=== PATIENT | female | born 1995 ===

== ENCOUNTER 2017-07-13 03:32 | Emergency (ER) | payer SELFPAY ==
--- NOTE | 2017-07-13 04:10 | ED ---
Santosh Valerio Rebecca, scribed for David Shields MD on 07/13/17 at 0354 . Substance Abuse/Use - HPI Summary HPI Summary: Pt is a 22 y/o F BIBA who comes to ED p/w EtOH intoxication with associated N/ V. Per EMS, she was found by a friend an hour after they had last seen her and her friend called EMS. When asked multiple questions she states unrelated phrases such as "I want the doctor," "I'm going to cry" and "I just want to go home." Level 5 caveat due to EtOH intoxication. - History Of Current Complaint Chief Complaint: EDSubstanceAbuse Stated Complaint: ALCHOHOL CONSUMPTION Hx Obtained From: EMS Hx From Patient Unobtainable Due To: Other - EtOH intoxication Ingestion History: Type/Name Of Drug - EtOH Overdose Characteristics: Oral Associated Signs And Symptoms: Nausea, Vomiting - Allergies/Home Medications Allergies/Adverse Reactions: Allergies Allergy/AdvReac Type Severity Reaction Status Date / Time Unable to Obtain Allergy Verified 07/13/17 03:39 PMH/Surg Hx/FS Hx/Imm Hx Previously Healthy: No - Unknown, level 5 caveat due to EtOH intoxication Infectious Disease History: Unable to Obtain/Confirm Infectious Disease History: Denies: Traveled Outside the [place] in Last 30 Days - Family History Known Family History: Positive: Unknown - Level 5 caveat due to EtOH intoxication - Social History Occupation: Student Alcohol Use: Presents with EtOH intoxication Review of Systems - ROS Summary Review of Systems Summary: Level 5 caveat due to EtOH intoxication. Positive: Vomiting, Nausea Positive: Other - EtOH intoxication All Other Systems Reviewed And Are Negative: No Physical Exam Triage Information Reviewed: Yes Vital Signs On Initial Exam: Initial Vitals Temp Pulse Resp BP Pulse Ox 95.5 F 95 16 90/71 100 07/13/17 03:35 07/13/17 03:35 07/13/17 03:35 07/13/17 03:35 07/13/17 03:35 Vital Signs Reviewed: Yes Appearance: Positive: Well-Appearing - aob Skin: Positive: Warm Head/Face: Positive: Normal Head/Face Inspection Eyes: Positive: MU ENT: Positive: Hearing grossly normal Neck: Positive: Supple Respiratory/Lung Sounds: Positive: Clear to Auscultation, Breath Sounds Present Cardiovascular: Positive: RRR Abdomen Description: Positive: Nontender, Soft Bowel Sounds: Positive: Present Musculoskeletal: Positive: Strength/ROM Intact Neurological: Positive: Alert, Oriented to Person Place, Time Psychiatric: Positive: Affect/Mood Appropriate Diagnostics - Vital Signs Vital Signs Temp Pulse Resp BP Pulse Ox 07/13/17 03:35 95.5 F 95 16 90/71 100 - Laboratory Lab Statement: Any lab studies that have been ordered have been reviewed, and results considered in the medical decision making process. Course/Dx - Course Assessment/Plan: Pt is a 22 y/o F BIBA who comes to ED p/w EtOH intoxication with associated N/V. Per EMS, she was found by a friend an hour after they had last seen her. When asked multiple questions she states unrelated phrases such as "I want the doctor," "I'm going to cry" and "I just want to go home.". Level 5 caveat due to EtOH intoxication. Serum alcohol of 293. Pt will be D/C to home with Dx of alcohol intoxication and a follow up with her PCP. She understands and agrees. - Diagnoses Provider Diagnoses: Alcohol intoxication Discharge - Discharge Plan Condition: Stable Disposition: HOME Patient Education Materials: Alcohol Intoxication (ED) Referrals: [facility] [Primary Care Provider] - 3 Days Additional Instructions: Return to the ED for any returning or worsening symptoms. The documentation as recorded by the Santosh kingsley Rebecca accurately reflects the service I personally performed and the decisions made by , David Shields MD.
[2017-07-13 04:39] LABS: Alcohol 293 mg/dL (<10)
[2017-07-13 09:18] VITALS: BP 121/70
[2017-07-13] MEDS ORDERED: Ondansetron ODT TAB* 4 MG PO ONE (09:50)
[2017-07-13] MEDS ORDERED: Ondansetron ODT TAB* 4 MG ONE (09:52)
== END 2017-07-13 09:20 | disposition home or self-care (01) ==
LOC: ED 03:32
DX: F10.129 Alcohol abuse with intoxication, unspecified (principal); R11.2 Nausea with vomiting, unspecified
CPT/HCPCS: 36415; 80320; 84702; 99283; A9270-GY; G0480